=== PATIENT | female | born 1955 | race African-American/Black ===

== ENCOUNTER 2020-07-30 09:28 | Emergency (ER) | payer MEDICARE, MEDICAID ==
[~2020-07-30] VITALS: Ht 160 cm; Wt 68.0 kg
[2020-07-30] MEDS ORDERED: ONDANSETRON 4MG ODT PO ONE (10:45)
[2020-07-30] MEDS ORDERED: HYDROCODONE/ACETAMINOPHEN 5/325MG TABLET PO ONE (10:45)
[2020-07-30 12:46] VITALS: BP 103/7
== END 2020-07-30 12:48 | disposition home or self-care (01) ==
LOC: ER 09:28
DX: S82.832A Other fracture of upper and lower end of left fibula, initial encounter for closed fracture (principal); I10 Essential (primary) hypertension; E11.9 Type 2 diabetes mellitus without complications; W01.0XXA Fall on same level from slipping, tripping and stumbling without subsequent striking against object, initial encounter; Y93.89 Activity, other specified; Y92.018 Other place in single-family (private) house as the place of occurrence of the external cause
CPT/HCPCS: 29515; 73610; 73630; 99284; Q0162